=== PATIENT | female | born 1995 | race Caucasian/White ===

== ENCOUNTER 2017-12-21 15:30 | Emergency (ER) | payer OTHER ==
[2017-12-21 17:13] LABS: URINE BLOOD (Dip) POC 3+ (NEGATIVE); URINE GLUCOSE (Dip) POC Negative (NEGATIVE); URINE KETONES (Dip) POC Negative (NEGATIVE); URINE LEUKOCYTE EST (Dip) POC Negative (NEGATIVE); URINE NITRITE (Dip) POC Negative (NEGATIVE); URINE TOTAL PROTEIN POC Trace (NEGATIVE)
[2017-12-21] MEDS: KETOROLAC 30 MG INJ IM (17:24)
== END 2017-12-21 18:48 | disposition home or self-care (01) ==
LOC: FTE 15:30
DX: M54.5 Low back pain (principal)
CPT/HCPCS: 81003; 81025; 96372; 99284-25

== ENCOUNTER 2018-02-21 15:59 | Emergency (ER) | payer OTHER | END 2018-02-21 18:07 | disposition home or self-care (01) | LOC: FTE 15:59 | DX: J34.89 Other specified disorders of nose and nasal sinuses (principal) | CPT/HCPCS: 81025; 99282 ==

== ENCOUNTER 2018-03-02 20:45 | Emergency (ER) | payer OTHER ==
[2018-03-02] MEDS: ACETAMINOPHEN 500 MG TAB PO (22:08)
[2018-03-02] MEDS: ONDANSETRON (ODT) 4 MG TAB ODT (22:08)
[2018-03-02 22:24] LABS: URINE BLOOD (Dip) POC 1+ (NEGATIVE); URINE GLUCOSE (Dip) POC Negative (NEGATIVE); URINE KETONES (Dip) POC 4+ (NEGATIVE); URINE LEUKOCYTE EST (Dip) POC Trace (NEGATIVE); URINE NITRITE (Dip) POC Negative (NEGATIVE); URINE TOTAL PROTEIN POC Trace (NEGATIVE)
[2018-03-02 22:24] LABS: URINE PH (Dip) POC 6.5 (5.0-8.5)
== END 2018-03-02 22:50 | disposition home or self-care (01) ==
LOC: FTE 20:45
DX: R05 Cough (principal); R11.10 Vomiting, unspecified
CPT/HCPCS: 81003; 87086; 99283